=== PATIENT | female | born 1965 | race Two or more races ===

== ENCOUNTER 2017-04-23 12:34 | Outpatient (CLI) | payer OTHER | END 2017-04-23 12:47 | disposition home or self-care (01) | LOC: MAMO-SONO 12:34 | DX: R10.2 Pelvic and perineal pain (principal); N64.4 Mastodynia; Z12.31 Encounter for screening mammogram for malignant neoplasm of breast ==

== ENCOUNTER 2017-06-05 14:09 | Outpatient (CLI) | payer OTHER | END 2017-06-05 17:00 | disposition home or self-care (01) | LOC: MRI 14:09 | DX: M51.9 Unspecified thoracic, thoracolumbar and lumbosacral intervertebral disc disorder (principal) | CPT/HCPCS: 72149 ==

== ENCOUNTER → 2018-12-04 | Outpatient (CLI) | payer OTHER | END | disposition home or self-care (01) | LOC: NUCLEAR 12-03 08:30 | DX: K81.1 Chronic cholecystitis (principal); K29.50 Unspecified chronic gastritis without bleeding | CPT/HCPCS: A9537; 78227 ==